=== PATIENT | female | born 1955 | race Two or more races ===

== ENCOUNTER 2019-10-12 11:20 | Inpatient (IN) | payer OTHER ==
[~2019-10-12] VITALS: Ht 160 cm; Wt 66.2 kg
--- NOTE | 2019-10-12 11:27 | NUR ---
SE RECIBE PTE ALERTA Y ORIENTADA X3,REFERIDA POR EL DR.JOSE MAHER PARA INTERVENCION QUIRURGICA MANANA ,REFIERE QUE TIENE PERFORACION EBN EL COLON,EL REFIERE QUE ES PARA ADMITIRLA.
[2019-10-12] MEDS ORDERED: ZOLOFT25 MG (11:32)
[2019-10-12] MEDS ORDERED: PROTONIX20 MG (11:32)
--- NOTE | 2019-10-12 12:21 | NUR ---
PACIENTE ALERTA Y ORIENTADA POR APURVA ESFERAS. SE ORIENTA A PACIENTE SOBRE PROCEDIMIENTO, REFIERE ENTENDER. SE EXTRAE MUESTRAS DE LABORATORIO CON MEDIDAS ASEPTICAS Y SE ENVIA A LABORATORIO.
[2019-10-14] MEDS ORDERED: ULTRACET PO (10:04)
[2019-10-14] MEDS ORDERED: CIPRO500 MG PO (10:05)
[2019-10-14] MEDS ORDERED: FLAGYL500MG PO (10:05)
[2019-10-14] MEDS ORDERED: LEVSIN/SL0.125 MG SL (10:05)
== END 2019-10-14 13:59 | disposition home or self-care (01) | DRG 395 ==
LOC: ER 11:20 → SURH 17:56 → SEC-K 17:56 → SURH 20:45
PROVIDERS: ADMIT Surgery
PROC: 0DCN8ZZ Extirpation of Matter from Sigmoid Colon, Via Natural or Artificial Opening Endoscopic (ICD-10-PCS; principal; 2019-10-12)
DX: T18.4XXA Foreign body in colon, initial encounter (principal); K21.9 Gastro-esophageal reflux disease without esophagitis; F41.8 Other specified anxiety disorders; K57.30 Diverticulosis of large intestine without perforation or abscess without bleeding

== ENCOUNTER → 2020-04-13 | Outpatient (CLI) | payer OTHER ==
[~2020-04-13] MED LIST: CIPRO500 MG PO; FLAGYL500MG PO; LEVSIN/SL0.125 MG SL; PROTONIX20 MG; ULTRACET PO; ZOLOFT25 MG
== END | disposition home or self-care (01) ==
LOC: OFIC 805 09:52
PROVIDERS: ATTEND Otolaryngology
DX: M26.69 Other specified disorders of temporomandibular joint (principal); H61.22 Impacted cerumen, left ear; R42 Dizziness and giddiness

== ENCOUNTER 2020-04-19 08:39 | Outpatient (CLI) | payer OTHER | END 2020-04-19 08:57 | disposition home or self-care (01) | LOC: SONOGRAMA 08:39 | PROVIDERS: ATTEND Otolaryngology | DX: R22.1 Localized swelling, mass and lump, neck (principal) ==

== ENCOUNTER 2020-06-14 06:55 | Outpatient (CLI) | payer OTHER | END 2020-06-14 11:49 | disposition home or self-care (01) | LOC: OFIC 805 06:55 | PROVIDERS: ATTEND Otolaryngology | DX: R42 Dizziness and giddiness (principal); M26.642 Arthritis of left temporomandibular joint; H92.02 Otalgia, left ear ==

== ENCOUNTER 2021-06-10 05:25 | Day surgery (SDC) | payer OTHER ==
[~2021-06-10 05:25] MED LIST changes: +PEPCID AC10 MG PO
== END 2021-06-10 12:40 | disposition home or self-care (01) ==
LOC: CIR.AMB 05:25
PROVIDERS: ATTEND Otolaryngology
DX: T17.308A Unspecified foreign body in larynx causing other injury, initial encounter (principal); Z20.822 Contact with and (suspected) exposure to COVID-19